=== PATIENT | male | born 1945 | race Caucasian/White ===

== ENCOUNTER → 2016-12-01 | Outpatient (CLI) | payer OTHER | LOC: FIMAGING 07:51 | PROVIDERS: ATTEND Family Medicine | DX: J40 Bronchitis, not specified as acute or chronic (principal) ==

== ENCOUNTER → 2016-12-29 | Outpatient (CLI) | payer OTHER ==
[~2016-12-29] MED LIST: IOPAMIDOL (ISOVUE-300) 100 ML BTL ONE
[2016-12-29 14:26] LABS: CREATININE 1.1 mg/dL (0.7-1.3); GLOMERULAR FILTRATION RATE > 60
== END ==
LOC: FIMAGING 13:40
PROVIDERS: ATTEND Family Medicine
DX: R91.8 Other nonspecific abnormal finding of lung field (principal)
CPT/HCPCS: 71260; Q9967

== ENCOUNTER 2017-04-26 20:54 | Emergency (ER) | payer OTHER ==
[2017-04-26 21:09] VITALS: RESP 16; TEMP 98.1
--- NOTE | 2017-04-26 22:28 | EDPHY ---
H & P Stated Complaint: cellulitis s/p wasp bite yesterday to r arm HPI/ROS: HPI CHIEF COMPLAINT: Right hand pain swelling, redness up right arm HISTORY OF PRESENT ILLNESS: This patient is 72-year-old male, otherwise healthy does have hypertension hyperlipidemia but no diabetes immunocompetent, presents emergency room after states he got stung by a wasp yesterday or 24 hours ago to his right hand. Since then he has had progressively swelling of his right hand however what concerned him the most is erythematous warmth streaking up the inner right arm. No fever. He states progressed over the past few hours. Past Medical History: Hypertension, hyperlipidemia, nondiabetic. Past Surgical History: No recent surgery he does have a history of left knee surgery and a cervical fusion Social History: Denies daily use of drugs alcohol tobacco products. Family History: Noncontributory ROS REVIEW OF SYSTEMS: A comprehensive 10 point review of systems is otherwise negative aside from elements mentioned in the history of present illness. Exam Constitutional appears well nontoxic, triage nursing summary reviewed, vital signs reviewed, awake/alert. Eyes normal conjunctivae and sclera, EOMI, PERRLA. HENT normal inspection, atraumatic, moist mucus membranes, no epistaxis, neck supple/ no meningismus, no raccoon eyes. Respiratory clear to auscultation bilaterally, normal breath sounds, no respiratory distress, no wheezing. Cardiovascular rate normal, regular rhythm, no murmur, no edema, distal pulses normal. Gastrointestinal soft, non-tender, no rebound, no guarding, normal bowel sounds, no distension, no pulsatile mass. Genitourinary no CVA tenderness. Musculoskeletal no midline vertebral tenderness, full range of motion, no calf swelling, no tenderness of extremities, no meningismus, good pulses, neurovascularly intact. Skin be arm: The hand is diffusely swollen and edematous, no significant warmth, no significant redness however palmar side of the right forearm is erythematous streaking up the right arm no crepitus on exam, neurovascular intact good sensation, good pulse. No signs of compartment syndrome. Neurologic awake, alert and oriented x 3, AAOx3, moves all 4 extremities equally, motor intact, sensory intact, CN II-XII intact, normal cerebellar, normal vision, normal speech. Psychiatric normal mood/affect. Heme/Lymph/Immune no lymphadenopathy. Differential Diagnosis: Includes but is not limited to in a particular order, right arm cellulitis, strep infection, MRSA infection, localized reaction Medical Decision Making: Plan for this patient blood work, blood work, IV vancomycin 1st dose, IV fluids. X-ray right hand. Re-evaluation: 2338: X-ray reviewed of the right hand soft tissue swelling no foreign body visualized. Given the amount of significant redness streaking up the arm feel this patient benefit from overnight hospitalization for IV antibiotics and hopefully clinical improvement of this infection. Cellulitis right upper extremity. 2344: Updated patient is agreeable for admission overnight IV antibiotics. Reason for admission right arm cellulitis streaking up the right arm. Spoke with the hospitalist service Dr. Degroot who agrees to admit this patient. Source: Patient - Personal History Current Tetanus/Diphtheria Vaccine: Yes Current Tetanus Diphtheria and Acellular Pertussis (TDAP): Yes Tetanus Vaccine Date: 2015 - Medical/Surgical History Other PMH: htn,. high choleatero,l - Social History Smoking Status: Never smoked Constitutional: Initial Vital Signs Temperature (C) 36.7 C 04/26/17 21:00 Heart Rate 63 04/26/17 21:00 Respiratory Rate 16 04/26/17 21:00 Blood Pressure 157/79 H 04/26/17 21:00 O2 Sat (%) 93 04/26/17 21:00 O2 Delivery Mode Room Air Allergies/Adverse Reactions: penicillin G Allergy (Verified 04/26/17 21:09) Home Medications: Medication Instructions Recorded Aspirin [Aspirin 81mg (*)] 81 mg PO DAILY 04/26/17 Lisinopril 10 mg PO 04/26/17 Statin 04/26/17 Medical Decision Making - Diagnostics Imaging Results: Imaging Impressions Hand X-Ray 04/26/17 22:35 Impression: 1. Soft tissue swelling with no acute osseous findings. 2. Hook osteophyte in the 3rd metacarpal head, which can be seen with hemachromatosis or CPPD. 3. Degenerative change as above. - Data Points Laboratory Results: Laboratory Results 04/26/17 21:40 04/26/17 21:40 04/26/17 04/26/17 21:40 21:40 WBC 6.36 10^3/uL 10^3/uL (3.80-9.50) RBC 5.46 10^6/uL 10^6/uL (4.40-6.38) Hgb 17.0 g/dL g/dL (13.7-17.5) Hct 50.5 % % (40.0-51.0) MCV 92.5 fL fL (81.5-99.8) MCH 31.1 pg pg (27.9-34.1) MCHC 33.7 g/dL g/dL (32.4-36.7) RDW 13.6 % % (11.5-15.2) Plt Count 250 10^3/uL 10^3/uL (150-400) MPV 9.7 fL fL (8.7-11.7) Neut % (Auto) 59.4 % % (39.3-74.2) Lymph % (Auto) 17.0 % % (15.0-45.0) [place] % (Auto) 10.7 % % (4.5-13.0) Eos % (Auto) 11.5 % H % (0.6-7.6) Baso % (Auto) 0.9 % % (0.3-1.7) Nucleat RBC Rel Count 0.0 % % (0.0-0.2) Absolute Neuts (auto) 3.78 10^3/uL 10^3/uL (1.70-6.50) Absolute Lymphs (auto) 1.08 10^3/uL 10^3/uL (1.00-3.00) Absolute Monos (auto) 0.68 10^3/uL 10^3/uL (0.30-0.80) Absolute Eos (auto) 0.73 10^3/uL H 10^3/uL (0.03-0.40) Absolute Basos (auto) 0.06 10^3/uL 10^3/uL (0.02-0.10) Absolute Nucleated RBC 0.00 10^3/uL 10^3/uL (0-0.01) Immature Gran % 0.5 % % (0.0-1.1) Immature Gran # 0.03 10^3/uL 10^3/uL (0.00-0.10) ESR 7 MM/HR MM/HR (0-20) Sodium 135 mEq/L mEq/L (134-144) Potassium 4.8 mEq/L mEq/L (3.5-5.2) Chloride 105 mEq/L mEq/L (97-110) Carbon Dioxide 20 mEq/l L mEq/l (22-31) Anion Gap 10 mEq/L mEq/L (8-16) BUN 25 mg/dL H mg/dL (7-23) Creatinine 1.1 mg/dL mg/dL (0.7-1.3) Estimated GFR > 60 Glucose 92 mg/dL mg/dL (70-100) Calcium 10.1 mg/dL mg/dL (8.5-10.4) C-Reactive Protein 21.4 mg/L H mg/L (<10.0) Medications Given: Discontinued Medications Vancomycin/Sodium Chloride (Vancomycin 1 Gm (Premix)) 250 mls @ 250 mls/hr IV EDNOW ONE PRN Reason: Protocol Stop: 04/26/17 23:31 Last Admin: 04/26/17 23:00 Dose: 250 mls Departure - Departure Disposition: [facility] Inpatient Acute Clinical Impression: Right arm cellulitis Condition: Fair Referrals: Jessika Skinner MD [Primary Care Provider] - As per Instructions
[2017-04-26] MEDS ORDERED: VANCOMYCIN HCL/NORMAL SALINE 250 ML IV ONE (22:32)
[2017-04-26 22:36] LABS: % IMMATURE GRANULYOCYTES 0.5 % (0.0-1.1); ABSOLUTE IMMATURE GRANULOCYTES 0.03 10^3/uL (0.00-0.10); ADD DIFF? NO; ADD MORPH? NO; ADD SCAN? NO; ATYPICAL LYMPHOCYTE FLAG 0 (0-99); FRAGMENT RBC FLAG 0 (0-99); HEMATOCRIT 50.5 % (40.0-51.0); LEFT SHIFT FLG 0 (0-99); LIPEMIA HEMOLYSIS FLAG 80 (0-99); MEAN CELL HEMOGLOBIN 31.1 pg (27.9-34.1); MEAN CELL HEMOGLOBIN CONCENTR. 33.7 g/dL (32.4-36.7); MEAN CELL VOLUME 92.5 fL (81.5-99.8); MEAN PLATELET VOLUME 9.7 fL (8.7-11.7); PLATELET CLUMPS FLAG 0 (0-99); PLATELET COUNT 250 10^3/uL (150-400); RED BLOOD CELL COUNT 5.46 10^6/uL (4.40-6.38); RED CELL DISTRIBUTION WIDTH 13.6 % (11.5-15.2)
[2017-04-26 22:47] LABS: SEDIMENTATION RATE 7 MM/HR (0-20)
[2017-04-26 22:51] LABS: ANION GAP 10 mEq/L (8-16); C-REACTIVE PROTEIN 21.4 mg/L (<10.0); CALCIUM 10.1 mg/dL (8.5-10.4); CARBON DIOXIDE 20 mEq/l (22-31); CHLORIDE 105 mEq/L (97-110); CREATININE 1.1 mg/dL (0.7-1.3); GLOMERULAR FILTRATION RATE > 60; GLUCOSE 92 mg/dL (70-100); POTASSIUM 4.8 mEq/L (3.5-5.2); SODIUM 135 mEq/L (134-144)
[2017-04-27] MEDS ORDERED: CEPHALEXIN 500 MG CAP PO ONE (00:11)
[2017-04-27 00:16] VITALS: BP 147/82; PULSE 73; O2SAT 94
[2017-04-27] MEDS ORDERED: CEPHALEXIN 500 MG CAP PO SCH (06:00)
== END 2017-04-27 00:16 | disposition still patient (30) ==
LOC: UNDOADMOB 23:44
DX: L03.113 Cellulitis of right upper limb (principal); I10 Essential (primary) hypertension; Z79.82 Long term (current) use of aspirin
CPT/HCPCS: 73130; 96365; 99284; J3370

== ENCOUNTER 2017-05-15 02:10 | Emergency (ER) | payer OTHER ==
[2017-05-15 02:16] VITALS: RESP 16; TEMP 98.1
--- NOTE | 2017-05-15 02:16 | EDPHY ---
H & P HPI/ROS: HPI CHIEF COMPLAINT: Wasp sting room, redness and swelling HISTORY OF PRESENT ILLNESS: This patient very pleasant 72-year-old male presents emergency room with the right forearm wasp sting. Localized redness and swelling. Pain. No crepitus. He states he was stung earlier today. He the same thing happened to him a few weeks ago did well on antibiotics. He is requesting antibiotics here. Past Medical History: Hypertension Past Surgical History: No recent surgery Social History: Denies daily use drugs alcohol tobacco products. Family History: Noncontributory ROS REVIEW OF SYSTEMS: A comprehensive 10 point review of systems is otherwise negative aside from elements mentioned in the history of present illness. Exam Constitutional triage nursing summary reviewed, vital signs reviewed, awake/ alert. Eyes normal conjunctivae and sclera, EOMI, PERRLA. HENT normal inspection, atraumatic, moist mucus membranes, no epistaxis, neck supple/ no meningismus, no raccoon eyes. Respiratory clear to auscultation bilaterally, normal breath sounds, no respiratory distress, no wheezing. Cardiovascular rate normal, regular rhythm, no murmur, no edema, distal pulses normal. Gastrointestinal soft, non-tender, no rebound, no guarding, normal bowel sounds, no distension, no pulsatile mass. Genitourinary no CVA tenderness. Musculoskeletal right shoulder: Neurovascular intact. Palmar aspect of forearm shows area of 5 cm x 8 cm of erythema warmth and swelling. No crepitus. Appears to be inflammatory versus early infection. no midline vertebral tenderness, full range of motion, no calf swelling, no tenderness of extremities, no meningismus, good pulses, neurovascularly intact. Skin pink, warm, & dry, no rash, skin atraumatic. Neurologic awake, alert and oriented x 3, AAOx3, moves all 4 extremities equally, motor intact, sensory intact, CN II-XII intact, normal cerebellar, normal vision, normal speech. Psychiatric normal mood/affect. Heme/Lymph/Immune no lymphadenopathy. Differential Diagnosis: Includes but is not limited to in a particular order local reaction to wasp sting, cellulitis. Medical Decision Making: Plan for this patient 1st dose of Keflex and Bactrim here in emergency room. Prescriptions for both. Outlined area of redness and swelling. Understands return emergency room if there is worsening symptoms questions or concerns. Source: Patient - Personal History Tetanus Vaccine Date: 2015 - Medical/Surgical History Other PMH: htn,. high choleatero,l - Social History Smoking Status: Never smoked Constitutional: Initial Vital Signs Temperature (C) 36.7 C 05/15/17 02:15 Heart Rate 67 05/15/17 02:15 Respiratory Rate 16 05/15/17 02:15 Blood Pressure 145/71 H 05/15/17 02:15 O2 Sat (%) 93 05/15/17 02:15 O2 Delivery Mode Room Air Allergies/Adverse Reactions: penicillin G Allergy (Verified 05/15/17 02:14) Home Medications: Medication Instructions Recorded Aspirin [Aspirin 81mg (*)] 81 mg PO DAILY 04/26/17 Lisinopril 10 mg PO 04/26/17 Statin 04/26/17 Cephalexin [Keflex] 500 mg PO Q6H #28 cap 04/27/17 Sulfamethox/Tmp 800/160 mg 1 tab PO BID@1000,2200 #14 tab 04/27/17 [Bactrim Ds] Cephalexin [Keflex] 500 mg PO Q6H #28 cap 05/15/17 Sulfamethox/Tmp 800/160 mg 1 tab PO BID@1000,2200 #14 tab 05/15/17 [Bactrim Ds] Departure - Departure Disposition: Home, Routine, Self-Care Clinical Impression: Cellulitis Qualifiers: Site of cellulitis: extremity Site of cellulitis of extremity: upper extremity Laterality: left Qualified Code(s): L03.114 - Cellulitis of left upper limb Condition: Good Instructions: Cellulitis (ED), Insect Bite or Sting (ED) Additional Instructions: 1. Return emergency room if there is worsening symptoms includes worsening swelling, redness, fever pain. Referrals: Jessika Skinner MD [Primary Care Provider] - As per Instructions Prescriptions: Cephalexin [Keflex] 500 mg PO Q6H #28 cap Sulfamethox/Tmp 800/160 mg [Bactrim Ds] 1 tab PO BID@1000,2200 #14 tab
[2017-05-15] MEDS ORDERED: SULFAMETHOX/TMP 800/160 MG 1 TAB PO ONE (02:24)
[2017-05-15] MEDS ORDERED: CEPHALEXIN 500 MG CAP PO ONE (02:24)
[2017-05-15 06:21] VITALS: BP 132/76; PULSE 76; O2SAT 98
== END 2017-05-15 02:54 | disposition home or self-care (01) ==
DX: L03.114 Cellulitis of left upper limb (principal); I10 Essential (primary) hypertension; Z79.82 Long term (current) use of aspirin

== ENCOUNTER → 2017-06-01 | Outpatient (CLI) | payer OTHER | LOC: FIMAGING 13:55 | PROVIDERS: ATTEND Family Medicine | DX: E83.52 Hypercalcemia (principal); N18.9 Chronic kidney disease, unspecified; N28.1 Cyst of kidney, acquired ==

== ENCOUNTER → 2017-06-01 | Day surgery (SDC) | payer OTHER ==
--- NOTE | 2017-06-01 13:47 | GPN ---
[f rep st] PROCEDURE NOTE DATE OF PROCEDURE: 06/01/2017 PREOPERATIVE DIAGNOSIS: Elevated prostate-specific antigen. POSTOPERATIVE DIAGNOSIS: Elevated prostate-specific antigen. PROCEDURE PERFORMED: Transrectal ultrasound-guided biopsy of the prostate. ANESTHESIA: 1% local lidocaine. SPECIMENS: 12 prostate core biopsies. FINDINGS: No nodules felt on the digital rectal exam. Volume was 29.5, for a height of 2.91 cm, width of 4.49 cm, and a length of 4.31 cm. INDICATIONS FOR PROCEDURE: The patient came to my office for evaluation of an elevated PSA. His prostate was not large on my rectal exam, and thus we discussed getting a prostate biopsy, with his PSA of 5.88. We discussed the risks of a prostate biopsy, which included bleeding; infection; blood in the semen, stool, and ejaculate for up to 1 month; and a 5% risk of postbiopsy sepsis. I discussed giving aminoglycoside gentamicin IM prior to the procedure , and him taking 1 dose of Levaquin antibiotics after the procedure, for prevention of postbiopsy sepsis, and he agreed to do all of these, understood the risks, and agreed to proceed. DESCRIPTION OF PROCEDURE: He presented to our clinic for his 120 mg of gentamicin, and then he was taken down to the [facility] radiology department. A timeout was performed and consent was received. He was placed in the left lateral decubitus position. A digital rectal exam was performed, and the prostate again appeared around 30 to 40 g, and there were no specific nodules or abnormalities. The prostate probe was then gently inserted transrectally and, using ultrasound guidance, the right and left neurovascular bundles were anesthetized with 1% local lidocaine, 10 mL of lidocaine on each side. Then I took measurements of the prostate, as mentioned above in the findings. Then the 18-gauge biopsy needle was used to obtain 12 prostate core samples, 6 from the right and 6 from the left lobe. On the left and the right, there were 2 from both base, mid, and the apex at the most peripheral aspects of the prostate. There were no specific abnormalities seen on the ultrasound. Once all the biopsies were obtained, the probe was removed. The biopsy samples were evaluated for quality, and they looked like very nice cores. The patient tolerated the procedure very well. A rectal exam was performed at the end, and there was no significant hemorrhage seen on my glove. He was then sat up and felt well, without any pain, and again, he tolerated the procedure very well. Dr. Watson was present for the procedure. /[id number]/MODL MTDD
== END | disposition home or self-care (01) ==
LOC: BMCIMAGING 07:29
PROVIDERS: ATTEND Urology
PROC: 0VB03ZX Excision of Prostate, Percutaneous Approach, Diagnostic (ICD-10-PCS; principal; 2017-06-01)
DX: R97.20 Elevated prostate specific antigen [PSA] (principal)